=== PATIENT | female | born 1985 | race African-American/Black ===

== ENCOUNTER 2017-10-20 15:44 | Emergency (ER) | payer BC ==
[~2017-10-20] VITALS: Ht 165.1 cm; Wt 78.0 kg
[~2017-10-20 15:44] MED LIST: LORTAB 5 OR; NO HOME MEDS; PENICILLN VK500 MG OR
[2017-10-20 16:54] LABS: URINE BILIRUBIN - DIPSTICK NEGATIVE (NEGATIVE); URINE BLOOD DIPSTICK NEGATIVE (NEGATIVE); URINE COLOR YELLOW; URINE GLUCOSE - DIPSTICK NEGATIVE (NEGATIVE); URINE KETONE NEGATIVE (NEGATIVE); URINE LEUK ESTERASE NEGATIVE (NEGATIVE); URINE NITRITE - DIPSTICK NEGATIVE (Negative); URINE PH 6.5 (4.5-8.0); URINE PROTEIN - DIPSTICK NEGATIVE (NEG-TRACE); URINE SPECIFIC GRAVITY 1.025
[2017-10-20 16:57] LABS: URINE CLARITY CLEAR
[2017-10-20 17:39] LABS: HEMATOCRIT 39.8 % (37.0-47.0); HEMOGLOBIN 12.6 g/dl (12.0-16.0); IMMATURE GRANULOCYTES 0.2 % (0.0-1.0); MEAN CELL VOLUME 87.5 fL CALC (80.0-100.0); MEAN CORPUSCULAR HGB 27.7 pG CALC (26.0-32.0); MEAN CORPUSCULAR HGB CONC 31.7 g/L CALC (32.0-36.0); NEUT# 2.42 thou/uL (2.00-7.15); RED BLOOD COUNT 4.55 mill/uL (4.20-5.60); RED CELL DISTRI WIDTH 14.8 % (11.5-15.5)
[2017-10-20 18:00] LABS: ALBUMIN 4.1 g/dL (3.2-5.0); ALKALINE PHOSPHATASE 73 u/l (38-126); ANION GAP 18 (6-22 (CALC)); BILIRUBIN, TOTAL 0.5 mg/dL (0.0-1.4); BUN 10 mg/dL (7-17); BUN/CREATININE RATIO 16 (12-20 (CALC)); CARBON DIOXIDE 24 mmol/l (22-30); CHLORIDE 106 mmol/l (95-108); CREATININE 0.6 mg/dL (0.5-1.0); GFR > 60 ML/MIN (>=60 (CALC)); GFR FOR AFR.AMER. > 60 ML/MIN (>=60 (CALC)); LIPASE 161 u/l (23-300); POTASSIUM 4.5 mmol/l (3.5-5.1); SGOT/AST 21 u/l (14-36); SGPT/ALT 39 u/l (9-52); SODIUM 143 mmol/l (137-146); TOTAL PROTEIN 7.3 g/dL (6.3-8.2)
[2017-10-20] MEDS ORDERED: ZOFRAN ODT4 MG PO (19:01)
[2017-10-20] MEDS ORDERED: NAPROSYN500 MG PO (19:01)
[2017-10-20 19:20] VITALS: BP 134/84
[2017-10-20 20:33] LABS: C. DIFFICILE TOXIN A&B NEGATIVE (NEGATIVE)
== END 2017-10-20 20:00 | disposition home or self-care (01) | DRG 392 ==
LOC: ED 15:44
PROVIDERS: Emergency Medicine; Family Medicine
DX: K52.9 Noninfective gastroenteritis and colitis, unspecified (principal); N83.201 Unspecified ovarian cyst, right side; R22.42 Localized swelling, mass and lump, left lower limb
CPT/HCPCS: Q9967

== ENCOUNTER 2017-12-08 08:03 | Emergency (ER) | payer OTHER ==
[~2017-12-08] VITALS: Ht 165.1 cm; Wt 80.0 kg
[~2017-12-08 08:03] MED LIST changes: +NAPROSYN500 MG PO; +ZOFRAN ODT4 MG PO
[2017-12-08 08:37] LABS: HEMATOCRIT 38.7 % (37.0-47.0); HEMOGLOBIN 12.6 g/dl (12.0-16.0); IMMATURE GRANULOCYTES 0.4 % (0.0-1.0); MEAN CELL VOLUME 85.1 fL CALC (80.0-100.0); MEAN CORPUSCULAR HGB 27.7 pG CALC (26.0-32.0); MEAN CORPUSCULAR HGB CONC 32.6 g/L CALC (32.0-36.0); NEUT# 3.04 thou/uL (2.00-7.15); RED BLOOD COUNT 4.55 mill/uL (4.20-5.60); RED CELL DISTRI WIDTH 14.9 % (11.5-15.5)
[2017-12-08 08:55] LABS: ANION GAP 16 (6-22 (CALC)); BUN 6 mg/dL (7-17); BUN/CREATININE RATIO 10 (12-20 (CALC)); CARBON DIOXIDE 21 mmol/l (22-30); CHLORIDE 109 mmol/l (95-108); CREATININE 0.6 mg/dL (0.5-1.0); GFR > 60 ML/MIN (>=60 (CALC)); GFR FOR AFR.AMER. > 60 ML/MIN (>=60 (CALC)); POTASSIUM 3.6 mmol/l (3.5-5.1); SODIUM 142 mmol/l (137-146)
[2017-12-08 09:13] LABS: BETA-HCG, QUANT(RESULT NUMBER) <2 mIU/mL
[2017-12-08] MEDS ORDERED: MOTRIN400 MG PO (10:18)
[2017-12-08 10:22] VITALS: BP 119/73
== END 2017-12-08 10:41 | disposition home or self-care (01) | DRG 552 ==
LOC: ED 08:03
PROVIDERS: Family Medicine
DX: S16.1XXA Strain of muscle, fascia and tendon at neck level, initial encounter (principal); S39.012A Strain of muscle, fascia and tendon of lower back, initial encounter; S29.012A Strain of muscle and tendon of back wall of thorax, initial encounter; V49.40XA Driver injured in collision with unspecified motor vehicles in traffic accident, initial encounter

== ENCOUNTER 2022-12-01 16:02 | Emergency (ER) | payer SELFPAY ==
[~2022-12-01] VITALS: Ht 165.1 cm; Wt 83.9 kg
[~2022-12-01 16:02] MED LIST changes: +MOTRIN400 MG PO
[2022-12-01] MEDS ORDERED: CYCLOBENZAPRINE10 MG PO (17:31)
[2022-12-01] MEDS ORDERED: MOTRIN800 MG PO (17:31)
[2022-12-01 17:49] VITALS: BP 131/86
[2022-12-01] MEDS ORDERED: AMOXICILLIN500 MG PO (18:04)
== END 2022-12-01 18:06 | disposition home or self-care (01) | DRG 159 ==
LOC: ED 16:02
DX: K08.89 Other specified disorders of teeth and supporting structures (principal); M54.50 Low back pain, unspecified

== ENCOUNTER 2023-07-15 15:19 | Emergency (ER) | payer SELFPAY ==
[2023-07-15] VITALS (12 sets, daily range): BP systolic 117–146; BP diastolic 76–113
[~2023-07-15] VITALS: Ht 165.1 cm; Wt 75.0 kg
[~2023-07-15 15:19] MED LIST changes: +AMOXICILLIN500 MG PO; +CYCLOBENZAPRINE10 MG PO; +MOTRIN800 MG PO
[2023-07-15 16:36] LABS: BASO% 0.3 % (0-3); EOS% 2.8 % (0-8); HEMATOCRIT 40.3 % (37.0-47.0); HEMOGLOBIN 12.9 g/dl (12.0-16.0); IMMATURE GRANULOCYTES 0.1 % (0.0-5.0); LYMPH% 44.6 % (15-41); MEAN CORPUSCULAR HGB 26.9 pG CALC (26.0-32.0); MONO% 8.4 % (2-13); NEUT# 3.12 thou/uL (2.00-7.15); NEUT% 43.8 % (42-76); RED BLOOD COUNT 4.8 mill/uL (4.20-5.60); RED CELL DISTRI WIDTH 14.9 % (11.5-15.5)
[2023-07-15 16:39] LABS: URINE BILIRUBIN - DIPSTICK Negative (NEGATIVE); URINE BLOOD DIPSTICK Negative (NEGATIVE); URINE COLOR Yellow; URINE GLUCOSE - DIPSTICK Negative (NEGATIVE); URINE KETONE 15 mg/dL (NEGATIVE); URINE LEUK ESTERASE Negative (NEGATIVE); URINE NITRITE - DIPSTICK Positive (Negative); URINE PH 5.5 (4.5-8.0); URINE PROTEIN - DIPSTICK Negative (NEG-TRACE); URINE SPECIFIC GRAVITY >=1.030; URINE UROBILINOGEN - DIPSTICK 0.2 E.U./dL (0.2)
[2023-07-15 16:55] LABS: URINE BACTERIA FEW hpf; URINE SQUAMOUS EPITHELIAL CELL FEW EPI/hpf (0-FEW)
[2023-07-15 16:56] LABS: ALBUMIN 4.6 g/dL (3.2-5.0); ALKALINE PHOSPHATASE 78 u/l (38-126); ANION GAP 16 (6-22 (CALC)); BILIRUBIN, TOTAL 0.4 mg/dL (0.02-1.3); BUN 9 mg/dL (7-17); BUN/CREATININE RATIO 15 (12-20 (CALC)); CARBON DIOXIDE 24 mmol/l (22-30); CHLORIDE 101 mmol/l (95-108); CREATININE 0.6 mg/dL (0.5-1.0); GFR FOR AFR.AMER. > 60 ML/MIN (>=60 (CALC)); GFR OTHER RACES > 60 ML/MIN (>=60 (CALC)); LIPASE 238 u/l (23-300); POTASSIUM 3.8 mmol/l (3.5-5.1); SGOT/AST 27 u/l (14-36); SODIUM 136 mmol/l (137-146)
[2023-07-15] MEDS ORDERED: ONDANSETRON4 MG PO (18:52)
[2023-07-15] MEDS ORDERED: PROTONIX40 M2 PO (18:52)
[2023-07-15] MEDS ORDERED: MACROBID100 M1 PO (18:52)
== END 2023-07-15 20:35 | disposition home or self-care (01) | DRG 392 ==
LOC: ED 15:19
PROVIDERS: Nurse Practitioner
DX: R10.13 Epigastric pain (principal); N39.0 Urinary tract infection, site not specified
CPT/HCPCS: Q9967; S0164

== ENCOUNTER 2023-09-10 15:13 | Emergency (ER) | payer SELFPAY ==
[~2023-09-10] VITALS: Ht 165.1 cm; Wt 78.6 kg
[~2023-09-10 15:13] MED LIST changes: +MACROBID100 M1 PO; +ONDANSETRON4 MG PO; +PROTONIX40 M2 PO
[2023-09-10] MEDS ORDERED: METHOCARBAMOL 500 MG/TAB PO ONE (17:05)
[2023-09-10] MEDS ORDERED: NAPROXEN 250 MG/TAB PO ONE (17:05)
[2023-09-10 17:24] LABS: URINE BILIRUBIN - DIPSTICK Negative (NEGATIVE); URINE BLOOD DIPSTICK Negative (NEGATIVE); URINE GLUCOSE - DIPSTICK Negative (NEGATIVE); URINE KETONE 15 mg/dL (NEGATIVE); URINE LEUK ESTERASE Negative (NEGATIVE); URINE PH 5.5 (4.5-8.0); URINE PROTEIN - DIPSTICK Negative (NEG-TRACE); URINE SPECIFIC GRAVITY >=1.030; URINE UROBILINOGEN - DIPSTICK 0.2 E.U./dL (0.2)
[2023-09-10 17:26] LABS: URINE COLOR Yellow; URINE NITRITE - DIPSTICK Positive (Negative)
[2023-09-10 17:28] VITALS: BP 145/88
[2023-09-10 17:53] LABS: URINE BACTERIA MANY hpf; URINE SQUAMOUS EPITHELIAL CELL FEW EPI/hpf (0-FEW)
[2023-09-10] MEDS ORDERED: NAPROXEN500 MG PO (19:18)
[2023-09-10] MEDS ORDERED: METHOCARBAMOL500 MG PO (19:18)
[2023-09-10] MEDS ORDERED: BACTRIM DS1 TAB PO (19:18)
[2023-09-10 19:35] VITALS: BP 145/88
== END 2023-09-10 19:40 | disposition home or self-care (01) | DRG 690 ==
LOC: ED 15:13
PROVIDERS: Nurse Practitioner
DX: N39.0 Urinary tract infection, site not specified (principal); B96.20 Unspecified Escherichia coli [E. coli] as the cause of diseases classified elsewhere; M54.6 Pain in thoracic spine; M54.50 Low back pain, unspecified